=== PATIENT | female | born 1985 | race Caucasian/White ===

== ENCOUNTER 2018-04-04 20:09 | Emergency (ER) | payer SELFPAY ==
[2018-04-04 20:44] LABS: Bilirubin Negative (Negative); Blood, Urine Small (Negative); Clarity Clear (Clear); Glucose, Urine (Dipstick) Negative (Negative); Leukocyte Large (Negative); Nitrite Positive (Negative); Protein, Urine (Dipstick) 100 mg/dL (Neg-Trace); Urobilinogen 0.2 mg/dL (0.2-1.0); pH, Urine 5.5 (5.0-9.0)
[2018-04-04] MEDS ORDERED: Metoclopramide HCl 10 MG/2 ML VIAL ONE ×2 (21:00→21:57)
[2018-04-04] MEDS ORDERED: diphenhydrAMINE 50 MG/ML VIAL ONE (21:00)
[2018-04-04 21:06] LABS: Bacteria/HPF 3+ HPF (None Seen); RBC/HPF 0-3 HPF (0-3); Squamous Epithelial 0-3 HPF (0-3)
[2018-04-04 21:21] LABS: Pregnancy Test - Urine (BHCG) Negative (Negative)
[2018-04-04 21:22] LABS: Pregu Control Background? CLEAR/WHITE (CLR/WHITE); Pregu Control Bar Appear? YES (CONTROL BAR)
[2018-04-04] MEDS ORDERED: Ketorolac Tromethamine 30 MG/ML VIAL ONE (21:57)
[2018-04-04] MEDS ORDERED: Acetaminophen 500 MG TAB ONE (23:34)
[2018-04-04] MEDS ORDERED: Cipro 250 MG TAB ONE (23:38)
== END 2018-04-04 23:45 | disposition home or self-care (01) ==
LOC: NAV ERS 20:09
DX: R51 Headache (principal); N39.0 Urinary tract infection, site not specified; F41.9 Anxiety disorder, unspecified; F17.290 Nicotine dependence, other tobacco product, uncomplicated
CPT/HCPCS: 81003; 81015; 81025; 87077; 87086; 87186; 96365; 96366; 96375; J1200; J1885; J2765